=== PATIENT | male | born 1960 | race Caucasian/White ===

== ENCOUNTER 2018-01-10 05:29 | Outpatient (CLI) | payer BC ==
[~2018-01-10] VITALS: Ht 182.9 cm; Wt 77.1 kg
[~2018-01-10 05:29] MED LIST: AMLO5TAB2 PO; ASP81TEC PO
== END 2018-01-10 09:15 ==
LOC: PREOP 05:29
PROVIDERS: ATTEND Surgery
DX: Z01.818 Encounter for other preprocedural examination (principal)

== ENCOUNTER 2018-01-14 05:54 | Day surgery (SDC) | payer BC ==
[~2018-01-14] VITALS: Ht 182.9 cm; Wt 77.1 kg
[2018-01-14 06:25] VITALS: BP 161/103
[2018-01-14] MEDS ORDERED: CLINDAMYCIN 600 MG/50 ML IVPB 50 ML IV ONE ×2 (06:37→07:15)
[2018-01-14] MEDS ORDERED: LACTATED RINGERS 1,000 ML IV PRN ×2 (06:52→07:07)
[2018-01-14] MEDS ORDERED: MIDAZOLAM 2 MG/2 ML (VERSED) VIAL IV ONE (07:00)
[2018-01-14] MEDS ORDERED: LIDOCAINE/EPI 1%-1:200,000 (XYLOCAINE) 10 ML VIAL ONE (07:02)
[2018-01-14] MEDS ORDERED: proPOfol 200 MG/20 ML (DIPRIVAN) VIAL IV ONE (07:10)
[2018-01-14] MEDS ORDERED: SEVOFLURANE (ULTANE) 15 ML INHAL SOLN ONE ×2 (07:10→09:01)
[2018-01-14] MEDS ORDERED: LIDOCAINE PF 2% 5 ML (XYLOCAINE) VIAL ONE (07:10)
[2018-01-14] MEDS ORDERED: fentaNYL INJECTION 100 MCG/2 ML AMP ONE (07:10)
[2018-01-14] MEDS ORDERED: LIDOCAINE 1% INJ 20 ML 20 ML VIAL ONE (08:10)
--- NOTE | 2018-01-14 08:14 | Progress Note-Pre Operative ---
Pre-Operative Progress Note H&P Reviewed The H&P was reviewed, patient examined and no changes noted. Time Seen by Provider: 08:06 Date H&P Reviewed: Jan 14, 2018 Time H&P Reviewed: 08:08 Pre-Operative Diagnosis: Right cheek mass JOHN LUJAN DO Jan 14, 2018 08:13
[2018-01-14] MEDS ORDERED: ONDANSETRON 4 MG/2 ML (SDV) Z0FRAN ONE (09:01)
[2018-01-14] MEDS ORDERED: DEXAMETHASONE 10 MG/ML (DECADRON) 1 ML VIAL ONE (09:01)
[2018-01-14] MEDS ORDERED: ACHD5005 PO (09:08)
--- NOTE | 2018-01-14 09:08 | Progress Note-Post Operative ---
Post-Operative Progess Note Surgeon (s)/Manuscripts Archivist (s) Surgeon JOHN LUJAN DO Manuscripts Archivist: NONE Pre-Operative Diagnosis Right cheek mass Post-Operative Diagnosis Same pending pathology Procedure & Operative Findings Date of Procedure 01/14/18 Procedure Performed/Findings Excision right cheek mass, appx 4.4 cm long; down to muscle of cheek Anesthesia Type LMA Estimated Blood Loss Estimated blood loss (mL): scant Specimens/Packing Specimens Removed right cheek mass JOHN LUJAN DO Jan 14, 2018 09:08
--- NOTE | 2018-01-14 09:10 | Discharge Inst-Surgical ---
Discharge Inst-Surgical Depart Medication/Instructions New, Converted or Re-Newed RX: RX Given to Pt/Family Patient Instructions Follow up Appt: Make appointment for 1 week. [phone] Instructions: No strenuous activity. May shower in 24 hours, no tub bath or soaking. Use incentive spirometer at home as directed. No Smoking Skin/Wound Care: May remove bandages. You need to leave the Dermabond on over incision it will fall off on its own. Symptoms to Report: Appetite Changes, Extremity Discoloration, Numbness/Tingling, Swelling Increased , Bleeding Excessive, Eyesight Changes, Pain Increased, Urine Color Change, Constipation(Persistent), Fever over 101 degree F, Pain/Pressure in chest, Urinating Difficulty, Cough Up/Vomit Blood, Heart Beat Irreg/Pounding, Pain/ Pressure in jaw, Cramps in feet or legs, Lightheadedness, Pain/Pressure in shoulder, Diarrhea(Persistent), Memory Changes Suddenly, Questions/Concerns, Weight gain consecutive days, Dizziness/Fainting, Nausea/Vomiting, Shortness of Breath, Weight gain over 2 pounds If questions or concerns contact your physician Or seek help at emergency department. Activity Activity as Tolerated: Yes Driving Instructions: No Driving/Refer to Dr. David Discharge Diet: No Restrictions Diet After 24 Hours: Clear Liquid if Nauseous If Any Problems/Questions/Issu: Contact Your Physician, Go to Emergency Room Skin/Wound Care Infection Signs and Symptoms: Increased Redness, Foul Odor of Wound, Increased Drainage, Skin Itchy or Has a Rash, Increased Swelling, Temperature Above 101 F Bathing Instructions: Shower Stitches/[place]/Dermabond Dis: Dermabond Ice Pack: Ice On and Off Site (as needed for pain) JOHN LUJAN DO Jan 14, 2018 09:10
[2018-01-14] MEDS ORDERED: morphine INJ 10 MG/ML 1ML (SYR OR VIAL) IVP PRN (09:30)
[2018-01-14 10:10] VITALS: BP 160/98
--- NOTE | 2018-01-14 10:28 | Anesthesia-General Post-Op ---
General Patient Condition Mental Status/LOC: Same as Preop Cardiovascular: Satisfactory Nausea/Vomiting: Absent Respiratory: Satisfactory Pain: Controlled Complications: Absent Post Op Complications Complications None Follow Up Care/Instructions Patient Instructions None needed. Anesthesia/Patient Condition Patient Condition Patient is doing well, no complaints, stable vital signs, no apparent adverse anesthesia problems. No complications reported per nursing. BECK DE LA VEGA CRNA Jan 14, 2018 10:28
[2018-01-14 10:40] VITALS: BP 160/99
--- NOTE | 2018-01-14 13:24 | OPERATIVE REPORT ---
DATE OF SERVICE: PREOPERATIVE DIAGNOSIS: Right cheek mass. POSTOPERATIVE DIAGNOSIS: Right cheek mass, pending pathology. PROCEDURE: Excision of right cheek mass approximately 4.4 cm incision down to and including a very small portion of the muscle from the cheek. SURGEON: Dr. Mcdowell. BAG LOADER: None. ANESTHESIA: General endotracheal tube. SPECIMEN: Right cheek mass and a portion of skin. BLOOD LOSS: Scant. FLUIDS: Per anesthesia. POSTOPERATIVE CONDITION: Stable. INDICATION FOR PROCEDURE: The patient is a 57-year-old male who has a right cheek mass that has been getting progressively larger. He thinks he had "removed" in about 20 years ago, but it came back. FINDINGS: The patient had a large right cheek mass measured at least 6 or 7 cm x about 2.5 cm wide, looked like it was a sebaceous cyst. It was down to and almost part of the portion of the muscle removed en bloc. PROCEDURE NOTE: After informed consent was obtained, the patient was brought to the operating room, placed on the table in supine position, sterilely prepped and draped in normal fashion. Local lidocaine was used to infiltrate around this mass for pain control then made an elliptical incision over the top of the mass, removed a portion of the skin and then started dissecting around this mass with blunt dissection with mosquito hemostats as well as with needlepoint Bovie electrocautery. Did get into the mass couple times and got some whitish material out, able to drain and grasped the mass and then using retractors hold the skin away and continued taking this out with Bovie electrocautery as well as the blunt dissection going down and around this mass. It went all the way down to once the cheek and had some muscle closely attached, some of these were partially removed. Very minimal portions of these able to finally get all the way around the mass medially laterally, superiorly and inferiorly and then get up under it and then removed this en bloc removing the entire cyst garcia. The area was then copiously irrigated with normal saline. Hemostasis obtained using Bovie electrocautery. I then elected to close the incision with a 4-0 undyed Monocryl in a subcuticular fashion. Area was cleaned and dried. Dermabond used and then pressure dressing placed. The patient tolerated procedure well and transferred to recovery room in stable condition. Sponge, instruments, and needle count correct at the end of the case. Job ID: [id number] DocumentID: [id number] Dictated Date: 01/14/2018 09:14:17 Chainstitch Pants Outseamer Date: 01/14/2018 13:23:24 Dictated By: JOHN MCDOWELL DO
== END 2018-01-14 10:45 | disposition home or self-care (01) ==
LOC: SDC 05:54
PROVIDERS: ATTEND Surgery
DX: L72.0 Epidermal cyst (principal); F17.210 Nicotine dependence, cigarettes, uncomplicated
CPT/HCPCS: 87081